=== PATIENT | male | born 1985 | race Caucasian/White ===

== ENCOUNTER 2019-01-03 14:26 | Emergency (ER) | payer MEDICAID ==
[~2019-01-03] VITALS: Ht 167.6 cm; Wt 58.5 kg
[2019-01-03 14:31] VITALS: Ht 167.6 cm; Wt 58.5 kg
[2019-01-03 17:00] LABS: CALCIUM 8.3 mg/dL (8.5-10.1); CARBON DIOXIDE 33.6 mmol/L (21-32); CHLORIDE SERUM 100 mmol/L (98-107); CREATININE SERUM 0.8 mg/dL (0.7-1.3); GFR1 > 60 mL/min; GLUCOSE SERUM 90 mg/dL (74-106); POTASSIUM SERUM 4.5 mmol/L (3.5-5.1); SODIUM SERUM 138 mmol/L (136-145)
[2019-01-03 17:02] LABS: BASOPHIL % 0.7 % (0-2); RED CELL DISTRIBUTION WIDTH 12.8 % (11.5-14.5)
[2019-01-03 17:04] LABS: ALKALINE PHOSPHATASE 81 U/L (46-116); ALT/SGPT 20 U/L (16-63); AST/SGOT 16 U/L (15-37); BILIRUBIN TOTAL 0.2 mg/dL (0.20-1.00); LIPASE 177 IU/L (73-393); TOTAL PROTEIN, SERUM 6.9 g/dL (6.4-8.2)
[2019-01-03 17:07] LABS: ALBUMIN 3.3 g/dL (3.4-5.0)
[2019-01-03 17:09] LABS: PLATELET COUNT 646 x10^3mcL (130-400)
[2019-01-03 17:21] LABS: microscopic required? NO
[2019-01-03 17:35] LABS: urine erythrocyte NEGATIVE (NEGATIVE)
[2019-01-03 18:21] VITALS: BP 101/68
== END 2019-01-03 18:21 | disposition home or self-care (01) ==
LOC: ED 14:26
PROVIDERS: Emergency Medicine
DX: R10.13 Epigastric pain (principal); R42 Dizziness and giddiness; R11.0 Nausea; Z88.2 Allergy status to sulfonamides
CPT/HCPCS: 82962; J2405; J2765; J7030